=== PATIENT | female | born 1985 | race Caucasian/White ===

== ENCOUNTER 2016-12-28 09:56 | Emergency (ER) | payer BC ==
[2016-12-28 10:35] LABS: CALCIUM 8.2 mg/dL (8.5-10.1); CARBON DIOXIDE 26.3 mmol/L (21-32); CHLORIDE SERUM 107 mmol/L (98-107); CREATININE SERUM 0.9 mg/dL (0.6-1.0); GFR1 > 60 mL/min; GLUCOSE SERUM 116 mg/dL (74-106); POTASSIUM SERUM 4.2 mmol/L (3.5-5.1); SODIUM SERUM 140 mmol/L (136-145)
[2016-12-28 10:37] LABS: BASOPHIL % 0.6 % (0-2); PLATELET COUNT 206 x10^3mcL (130-400); RED CELL DISTRIBUTION WIDTH 13.8 % (11.5-14.5)
[2016-12-28 10:40] LABS: ALBUMIN 3.6 g/dL (3.4-5.0); ALKALINE PHOSPHATASE 44 U/L (46-116); ALT/SGPT 19 U/L (14-59); AST/SGOT 14 U/L (15-37); BILIRUBIN TOTAL 0.97 mg/dL (0.20-1.00); CHOLESTEROL 115 mg/dL (<200); CHOLESTEROL/HDL RATIO 2.2; HDL CHOLESTEROL 53 mg/dL (40-60); LIPASE 94 IU/L (73-393); TOTAL PROTEIN, SERUM 6.8 g/dL (6.4-8.2); TRIGLYCERIDES 34 mg/dL (<150)
[2016-12-28 10:50] LABS: FREE T4 1.3 ng/dL (0.76-1.46); FREE THYROXINE INDEX 2.5 ug/dL (1.4-4.5); T4(THYROXINE) 7.7 ug/dL (4.7-13.3)
[2016-12-28 10:57] LABS: T3 TOTAL 0.96 ng/mL
[2016-12-28 12:17] LABS: UA SPECIFIC GRAVITY 1.015 (1.005-1.035); microscopic required? YES; urine erythrocyte 2+ (NEGATIVE)
[2016-12-28 13:12] VITALS: BP 106/65
== END 2016-12-28 13:12 | disposition home or self-care (01) ==
LOC: ED 09:56
PROVIDERS: Specialist
DX: R55 Syncope and collapse (principal); R42 Dizziness and giddiness; S00.81XA Abrasion of other part of head, initial encounter; W19.XXXA Unspecified fall, initial encounter; Y93.89 Activity, other specified; Y92.89 Other specified places as the place of occurrence of the external cause; Y99.8 Other external cause status
CPT/HCPCS: 83880; 84439; J7030